=== PATIENT | female | born 1955 | race Caucasian/White ===

== ENCOUNTER 2023-09-08 02:40 | Emergency (ER) | payer OTHER ==
[~2023-09-08] VITALS: Ht 162.6 cm; Wt 63.5 kg
[2023-09-08 03:04] VITALS: BP_SYST 143; PULSE 71; RESP 12; TEMP 97.1; O2SAT 98
[2023-09-08] MEDS ORDERED: IBUP-2018 PO (03:11)
[2023-09-08] MEDS ORDERED: CEPH250C PO (03:11)
[2023-09-08] MEDS ORDERED: PHEN-726 PO (03:11)
[2023-09-08] MEDS: cephALEXin 500 MG CAPSULE PO ONE (03:28)
[2023-09-08 03:40] VITALS: BP_SYST 143; PULSE 71; RESP 12; TEMP 97.1; O2SAT 98
[2023-09-08 05:33] LABS: BILIRUBIN,URINE NEGATIVE (NEGATIVE); BLOOD, URINE 3+ (NEGATIVE); CLARITY/URINE CLOUDY (CLEAR); COLOR,URINE RED (YELLOW); GLUCOSE,URINE NEGATIVE (NEGATIVE); KETONES,URINE NEGATIVE (NEGATIVE); LEUKOCYTE ESTERASE ,URINE 2+ (NEGATIVE); NITRITE, URINE NEGATIVE (NEGATIVE); PH,URINE 6.5 (5.0-8.0); PROTEIN URINE 3+ (NEGATIVE); UROBILINOGEN,URINE 0.2 (0.2-1.0)
[2023-09-08 05:39] LABS: BACTERIA,URINE MODERATE /HPF (None Seen); RBC,URINE >100 /HPF (0-3); WBC,URINE 20-50 /HPF (0-3)
== END 2023-09-08 03:40 | disposition home or self-care (01) ==
LOC: SED 02:40
DX: N39.0 Urinary tract infection, site not specified (principal); R30.0 Dysuria
CPT/HCPCS: 81000; 81001; 81015; 87086; 87186; 99283